=== PATIENT | female | born 1955 | race Caucasian/White ===

== ENCOUNTER 2020-12-16 09:00 | Outpatient (REF) | payer MEDICARE, SELFPAY ==
--- NOTE | 2020-12-18 13:38 | MHC.AU.AHA ---
Adult Audiological Evaluation Date of Visit: 12/16/20 Quality Control Projectionist Used: Not Applicable Reason for Appointment: Audiologic re-evaluation due to increased hearing difficulties. Previous Hearing Test Results: Normal hearing thresholds 250-750 Hz dropping to a severe high frequency sensorineural hearing loss with 84% speech understanding at 70 dB HL for the right ear and 76% for the left ear at 75 dB HL Medical History: Medication List: Celebrex, Citalopram, Estrogen Cream, Multi-vitamin, and Vitamin D Hearing Instrument History- Right Ear: Emergency Man: Phonak Model: [email or web address] M 90-13T Serial Number: [id number] Battery Size: 13 Repair Warranty: 08/20/2022 Dispensed By: [facility] Date of Fittin05/31/2019 Hearing Instrument History- Left Ear: Emergency Man: Phonak Model: [email or web address] M 90-13T Serial Number: [id number] Battery Size: 13 Repair Warranty: 08/20/2022 Dispensed By: [facility] Date of Fittin05/31/2019 Otoscopy: Right Ear: Unremarkable Left Ear: Unremarkable Tympanometry: Not performed at today's visit as all previous testing has indicated normal middle ear function bilaterally Hearing Evaluation: Transducer(s) Used: Insert Earphones Bone Conduction Method: Conventional Audiometry Stimuli Used: Pure Tones Right Ear: Description of Hearing: Normal hearing thresholds at 250 and 500 Hz dropping to a severe high frequency sensorineural hearing loss Left Ear: Description of Hearing: Normal hearing levels at 250-750 Hz dropping to a severe high frequency sensorineural hearing loss Speech Recognition Threshold (SRT): Method Used: Monitored Live Voice Stimuli Used: Spondee Words Right Ear: 30 dB HL Left Ear: 25 dB HL Word Discrimination: Method: Recorded Lists Word Lists Used: NU-6 Right Ear: 76% at 70 dB HL Left Ear: 72% at 70 dB HL Comparison: Compared to most recent evaluation: Hearing thresholds have decreased 10-20 dB at 0358-9552 Hz, right ear greater than left. A decrease in these frequencies can greatly affect the perception of loudness of speech. Recommendations: Audiological re-evaluation in one year. Will send a reminder card. Hearing aid maintenance performed today. Hearing aid(s) reprogrammed with updated test results. Diagnosis: Primary Diagnosis: H90.3 Bilateral Sensorineural Hearing Loss Services Performed: Comprehensive Audiological Evaluation (CPT 02839) Signature: Provider: Xiao English, DEVAUGHN-A
== END 2020-12-16 09:01 | disposition home or self-care (01) ==
LOC: HO.SH 09:00
PROVIDERS: Visit Provider Nurse Practitioner Family
DX: H91.90 Unspecified hearing loss, unspecified ear (principal)
CPT/HCPCS: 92557

== ENCOUNTER → 2021-02-08 09:17 | Day surgery (SDC) | payer MEDICARE, SELFPAY ==
[2021-02-02 11:41] VITALS: BMI 29.9
--- NOTE | 2021-02-04 07:49 | MHC.SHP ---
Pre-Procedural Eval Section A Date of Service: 02/04/21 The patient is an INPATIENT: No The History & Physical has been completed within 30 days and I have reviewed it.: Yes Section B Chief Complaint: Cataract Right Eye Allergies: Allergies Allergy/AdvReac Type Severity Reaction Status Date / Time No Known Allergies Allergy Verified 02/02/21 11:38 [No Known Allergies*] Plan Diagnosis/Plan: Unchanged I have reviewed the history and physical and performed a pertinent physical examination on my patient. No changes have occurred unless specified.
--- NOTE | 2021-02-05 10:18 | HO.ANESPROP2 ---
Documented by User: Janet Ramey 02/05/21 10:18 HPI - Anesthesia Eval Consult details Narrative: 65yo F for Right Cataract Extraction IOL Insertion PCP cleared No prev cataract on record [facility] Past Medical History Medical History Anxiety Arthritis COVID-19 vaccine series completed CASON (dyspnea on exertion) Surgical History Surgical History History of Hx laparoscopic cholecystectomy Hx of colonoscopy Social History Social History Patient Tobacco Use Status: Former Tobacco user Quit Date: Years Smoked: 2 Use of substances other than those prescribed or required for medical reasons: No Are you DNR?: No Advance Directives: No Advance Directives Information Provided: No Meds Allergies Allergy/AdvReac Type Severity Reaction Status Date / Time No Known Allergies Allergy Verified 02/02/21 11:38 [No Known Allergies*] Home Medications Medication Instructions Recorded Confirmed Last Taken Type calcium carbonate-vitamin D3 tab 02/02/21 02/02/21 Unknown History [Calcium + D] celecoxib [Celebrex] 200 mg PO DAILY 02/02/21 02/02/21 Unknown History citalopram [Celexa] 20 mg PO DAILY 02/02/21 02/02/21 Unknown History multivitamin 1 tab PO DAILY 02/02/21 02/02/21 Unknown History Exam Exam Date and Time: February 05, 2021 1018 Height,Weight and Vital Signs: Height 5 ft 5 in Weight 81.647 kg Assessment and Plan Assessment Anesthesia Assessment: Chart Reviewed Documented by User: Mukund Martinez 02/08/21 10:57 PMFSH Past Medical History Medical History Anxiety Arthritis COVID-19 vaccine series completed CASON (dyspnea on exertion) Surgical History Surgical History History of Hx laparoscopic cholecystectomy Hx of colonoscopy Social History Social History Patient Tobacco Use Status: Former Tobacco user Quit Date: Years Smoked: 2 Use of substances other than those prescribed or required for medical reasons: No Are you DNR?: No Advance Directives: No Advance Directives Information Provided: No Meds Allergies Allergy/AdvReac Type Severity Reaction Status Date / Time No Known Allergies Allergy Verified 02/02/21 11:38 [No Known Allergies*] Home Medications Medication Instructions Recorded Confirmed Last Taken Type calcium carbonate-vitamin D3 tab 02/02/21 02/02/21 Unknown History [Calcium + D] celecoxib [Celebrex] 200 mg PO DAILY 02/02/21 02/02/21 Unknown History citalopram [Celexa] 20 mg PO DAILY 02/02/21 02/02/21 Unknown History multivitamin 1 tab PO DAILY 02/02/21 02/02/21 Unknown History Exam Airway Mallampati Class: II TM Dist: >3cm Neck ROM: Full Loose/Missing/Broken Teeth: No (many crowns) Heart: rrr+[id number] Lungs: cta b/l Assessment and Plan Assessment Anesthesia Assessment: Anesthesia Plan Discussed, PAT Visit and Chart Reviewed Final Anesthetic Review NPO: Yes ASA Class: II Final Preanesthetic Review: No Changes in Pt Med Stat, Meds/Allgs Chart Reviewed, Consent Obtained/Reviewed and Anes Risks/Benef Reviewed Patient Risk: Low Procedure Risk: Low Assessment/Block/Sedation in SS: Assess/Block/Sedation-SS Anesthetic Plan Anesthetic Plan: MAC: and Agree w/ Assess. and Plan Disposition: Standard PACU
[2021-02-08 10:45] VITALS: BP 144/76; PULSE 60; RESP 18; TEMP 36.1; O2SAT 97
[2021-02-08] MEDS: Tetracaine HCl/PF 0.5% Oph Sol 4 ML DROPS 1 DROP EYE-RIGHT (10:55)
[2021-02-08] MEDS: Tropicamide 1 % Ophth Sol 3 ML BTL 1 DROP EYE-RIGHT ×3 (10:55→10:56)
[2021-02-08] MEDS: Lactated Ringers 500 ML 50 ML IV (10:55)
[2021-02-08] MEDS: Phenylephrine HCL 2.5% Oph SoL 2 ML BOTTLE 1 DROP EYE-RIGHT ×3 (10:56→10:57)
--- NOTE | 2021-02-08 12:40 | HO.PNOPHT ---
Ophthalmology Procedure Procedure Date of Service: 02/08/21 Ophthalmology Viscoelastic: Healon Duet Dual Pack Pro Ophthalmology Lenses: TECNIS ZXR00 (23) Procedure Notes: PREOPERATIVE DIAGNOSIS: Decreased visual acuity right eye secondary to cataract POSTOPERATIVE DIAGNOSIS: Same PROCEDURE: Right cataract extraction with intraocular lens insertion SURGEON: Brad Knowles M.D. ANESTHESIA: Topical/MAC ESTIMATED BLOOD LOSS: None COMPLICATIONS: None After obtaining informed consent, the patient was brought to the operating room suite and placed in the supine position. After adequate sedation per anesthesia, topical drops of Tetracaine were given to the right eye. The eye was then prepped and draped in the usual sterile fashion. The operating room microscope was then positioned over the operative eye and a lid speculum placed. A paracentesis was created. Viscoelastic was then instilled into the anterior chamber. A three plane incision was then created temporally, utilizing a 2.85 mm keratome. Capsulotomy forceps were then utilized to create a circular tear capsulotomy. Hydrodissection and hydrodelineation were carried out until adequate mobilization of the nucleus occurred. Phacoemulsification was then utilized to remove the dense central nucleus followed by removal of the cortical material utilizing the automated aspiration irrigation unit. Viscoelastic was instilled into the posterior capsular bag followed by placement of a posterior chamber intraocular lens without difficulty. The residual Viscoelastic was then removed utilizing the automated IA machine. The wound was checked and found to be watertight. The patient tolerated the procedure well and the lid speculum was removed. Intracameral injection of Vigamox 0.1 mL followed by a subtenon injection of Kenalog-40 0.2 mL were administered. The patient will be seen in the a.m.
[2021-02-08 13:05] VITALS: BP 128/77; PULSE 56; RESP 16; TEMP 36.1; O2SAT 96
== END | disposition home or self-care (01) ==
PROVIDERS: PCP Nurse Practitioner Family; Visit Provider Ophthalmology
PROC: (CPT 66984; principal; 2021-02-08 12:10)
DX: H25.11 Age-related nuclear cataract, right eye (principal); H52.4 Presbyopia; F41.9 Anxiety disorder, unspecified; Z79.899 Other long term (current) drug therapy; Z88.8 Allergy status to other drugs, medicaments and biological substances; Z87.891 Personal history of nicotine dependence
CPT/HCPCS: 66984; J2250; J3300; V2788

== ENCOUNTER 2021-02-22 06:00 | Day surgery (SDC) | payer MEDICARE, SELFPAY ==
[2021-02-02 11:43] VITALS: BMI 29.9
--- NOTE | 2021-02-17 09:26 | MHC.SHP ---
Pre-Procedural Eval Section A Date of Service: 02/17/21 The patient is an INPATIENT: No The History & Physical has been completed within 30 days and I have reviewed it.: Yes Section B Chief Complaint: Cataract left eye Allergies: Allergies Allergy/AdvReac Type Severity Reaction Status Date / Time No Known Allergies Allergy Verified 02/02/21 11:38 [No Known Allergies*] Plan Diagnosis/Plan: Unchanged I have reviewed the history and physical and performed a pertinent physical examination on my patient. No changes have occurred unless specified.
--- NOTE | 2021-02-19 08:21 | P.CONAN_ITS ---
Documented by User: Janet Ramey 02/19/21 08:21 HPI - Anesthesia Eval Consult details Narrative: 65yo F for Left Cataract Extraction IOL Insertion PCP cleared Right eye 02/08/21 with Midaz [facility] Past Medical History Medical History Anxiety Arthritis COVID-19 vaccine series completed CASON (dyspnea on exertion) Surgical History Surgical History History of Hx laparoscopic cholecystectomy Hx of colonoscopy Social History Social History Patient Tobacco Use Status: Former Tobacco user Quit Date: Years Smoked: 2 Use of substances other than those prescribed or required for medical reasons: No Have you been hit, kicked, punched, or otherwise hurt by someone within the past year? If so, by whom?: No Are you DNR?: No Advance Directives: No Advance Directives Information Provided: No Advance Directives on File: No Meds Allergies Allergy/AdvReac Type Severity Reaction Status Date / Time No Known Allergies Allergy Verified 02/02/21 11:38 [No Known Allergies*] Home Medications Medication Instructions Recorded Confirmed Last Taken Type calcium carbonate-vitamin D3 tab 02/02/21 02/02/21 Unknown History [Calcium + D] celecoxib [Celebrex] 200 mg PO DAILY 02/02/21 02/02/21 Unknown History citalopram [Celexa] 20 mg PO DAILY 02/02/21 02/02/21 Unknown History multivitamin 1 tab PO DAILY 02/02/21 02/02/21 Unknown History Exam Exam Date and Time: February 19, 202121 Height,Weight and Vital Signs: Height 5 ft 5 in Weight 81.647 kg Assessment and Plan Assessment Anesthesia Assessment: Chart Reviewed Documented by User: Mitzi Jin 02/22/21 08:27 [facility] Past Medical History Medical History Anxiety Arthritis COVID-19 vaccine series completed CASON (dyspnea on exertion) Surgical History Surgical History History of Hx laparoscopic cholecystectomy Hx of colonoscopy Social History Social History Patient Tobacco Use Status: Former Tobacco user Quit Date: Years Smoked: 2 Use of substances other than those prescribed or required for medical reasons: No Have you been hit, kicked, punched, or otherwise hurt by someone within the past year? If so, by whom?: No Are you DNR?: No Advance Directives: No Advance Directives Information Provided: No Advance Directives on File: No Meds Allergies Allergy/AdvReac Type Severity Reaction Status Date / Time No Known Allergies Allergy Verified 02/02/21 11:38 [No Known Allergies*] Home Medications Medication Instructions Recorded Confirmed Last Taken Type calcium carbonate-vitamin D3 tab 02/02/21 02/02/21 Unknown History [Calcium + D] celecoxib [Celebrex] 200 mg PO DAILY 02/02/21 02/02/21 Unknown History citalopram [Celexa] 20 mg PO DAILY 02/02/21 02/02/21 Unknown History multivitamin 1 tab PO DAILY 02/02/21 02/02/21 Unknown History Exam Airway Mallampati Class: II TM Dist: >3cm Neck ROM: Full Assessment and Plan Assessment Anesthesia Assessment: Anesthesia Plan Discussed and Chart Reviewed Final Anesthetic Review NPO: Yes ASA Class: II Final Preanesthetic Review: No Changes in Pt Med Stat, Meds/Allgs Chart Reviewed, Consent Obtained/Reviewed and Anes Risks/Benef Reviewed Patient Risk: Low Procedure Risk: Low Assessment/Block/Sedation in SS: Assess/Block/Sedation-SS Anesthetic Plan Anesthetic Plan: MAC: Disposition: Standard PACU
[2021-02-22 06:19] VITALS: BP 146/78; PULSE 52; RESP 18; TEMP 36.6; O2SAT 98
[2021-02-22] MEDS: Tropicamide 1 % Ophth Sol 3 ML BTL 1 DROP EYE-LEFT ×3 (06:22→06:24)
[2021-02-22] MEDS: Tetracaine HCl/PF 0.5% Oph Sol 4 ML DROPS 1 DROP EYE-LEFT (06:22)
[2021-02-22] MEDS: Phenylephrine HCL 2.5% Oph SoL 2 ML BOTTLE 1 DROP EYE-LEFT ×3 (06:22→06:24)
[2021-02-22] MEDS: Lactated Ringers 500 ML 50 ML IV (06:39)
--- NOTE | 2021-02-22 08:48 | HO.PNOPHT ---
Ophthalmology Procedure Procedure Date of Service: 02/22/21 Ophthalmology Viscoelastic: Healon Duet Dual Pack Pro Ophthalmology Lenses: TECNIS ZXR00 (22.5) Procedure Notes: PREOPERATIVE DIAGNOSIS: Decreased visual acuity left eye secondary to cataract POSTOPERATIVE DIAGNOSIS: Same PROCEDURE: Left cataract extraction with multifocal intraocular lens insertion SURGEON: Brad Knowles M.D. ANESTHESIA: Topical/MAC ESTIMATED BLOOD LOSS: None COMPLICATIONS: None After obtaining informed consent, the patient was brought to the operation room suite and placed in the supine position. After adequate sedation per anesthesia, topical drops of Tetracaine were given to the left eye. The eye was then prepped and draped in the usual sterile fashion. The operating room microscope was then positioned over the operative eye and a lid speculum placed. A paracentesis was created. Viscoelastic was then instilled into the anterior chamber. A three plane incision was then created temporally, utilizing a 2.85 mm keratome. Capsulotomy forceps were then utilized to create a circular tear capsulotomy. Hydrodissection and hydrodelineation were carried out until adequate mobilization of the nucleus occurred. Phacoemulsification was then utilized to remove the dense central nucleus followed by removal of the cortical material utilizing the automated aspiration irrigation unit. Viscoelastic was instilled into the posterior capsular bag followed by placement of a multifocal posterior chamber intraocular lens without difficulty. The residual Viscoelastic was then removed utilizing the automated IA machine. The wound was check and found to be watertight. The patient tolerated the procedure well and the lid speculum was removed. Intracameral injection of Vigamox 0.1 mL followed by a subtenon injection of Kenalog-40 0.2 mL were administered. The patient will be seen in the a.m.
[2021-02-22 09:13] VITALS: BP 124/75; PULSE 52; RESP 16; TEMP 36.1; O2SAT 97
== END 2021-02-22 10:00 | disposition home or self-care (01) ==
PROVIDERS: PCP Nurse Practitioner Family; Visit Provider Ophthalmology
PROC: (CPT 66984; principal; 2021-02-22 08:30)
DX: H25.12 Age-related nuclear cataract, left eye (principal); H52.4 Presbyopia; R06.09 Other forms of dyspnea; Z79.899 Other long term (current) drug therapy; Z87.891 Personal history of nicotine dependence
CPT/HCPCS: 66984; J2250; J3010; J3300; V2788

== ENCOUNTER 2021-06-22 10:45 | Outpatient (REF) | payer SELFPAY | END 2021-06-22 10:46 | disposition home or self-care (01) | LOC: HO.HAP 10:45 | PROVIDERS: Visit Provider Nurse Practitioner Family | DX: Z13.89 Encounter for screening for other disorder (principal) ==

== ENCOUNTER 2021-07-21 10:42 | Outpatient (REF) | payer MEDICARE, SELFPAY ==
[2021-07-21 11:57] LABS: COVID-19 Test Negative (Negative); IDNOW Serial# 16C4AD1C
== END 2021-07-21 10:43 | disposition home or self-care (01) ==
LOC: HO.LAB 10:42
PROVIDERS: Visit Provider Internal Medicine
DX: Z20.822 Contact with and (suspected) exposure to COVID-19 (principal)
CPT/HCPCS: 36415; 87635; C9803

== ENCOUNTER 2022-01-21 10:58 | Outpatient (REF) | payer MEDICARE, SELFPAY ==
[2022-01-21 11:35] LABS: COVID-19 Test Negative (Negative)
== END 2022-01-21 10:59 | disposition home or self-care (01) ==
LOC: HO.LAB 10:58
PROVIDERS: Visit Provider Internal Medicine
DX: Z20.822 Contact with and (suspected) exposure to COVID-19 (principal)
CPT/HCPCS: 87635; C9803

== ENCOUNTER 2022-03-21 12:34 | Outpatient (REF) | payer MEDICARE, SELFPAY ==
[2022-03-21 12:45] VITALS: BP 163/83; PULSE 66; RESP 16; TEMP 36.6; O2SAT 98; BMI 27.8
== END 2022-03-21 12:35 | disposition home or self-care (01) ==
LOC: HO.MS 12:34
PROVIDERS: PCP Nurse Practitioner Family; Visit Provider Ophthalmology
PROC: (CPT 66821; principal; 2022-03-21 14:10)
DX: H26.491 Other secondary cataract, right eye (principal); H52.4 Presbyopia; Z96.1 Presence of intraocular lens; Z79.899 Other long term (current) drug therapy
CPT/HCPCS: 66821

== ENCOUNTER 2022-04-11 13:08 | Outpatient (REF) | payer SELFPAY | END 2022-04-11 13:09 | disposition home or self-care (01) | LOC: HO.HAP 13:08 | PROVIDERS: Visit Provider Nurse Practitioner Family | DX: Z13.89 Encounter for screening for other disorder (principal) ==

== ENCOUNTER 2022-06-27 13:28 | Outpatient (REF) | payer MEDICARE, SELFPAY | END 2022-06-27 13:29 | disposition home or self-care (01) | LOC: HO.SH 13:28 | PROVIDERS: Visit Provider Nurse Practitioner Family | DX: Z46.1 Encounter for fitting and adjustment of hearing aid (principal); H90.3 Sensorineural hearing loss, bilateral | CPT/HCPCS: 92552; 92556; 92567 ==

== ENCOUNTER 2023-01-20 10:12 | Outpatient (REF) | payer SELFPAY | END 2023-01-20 10:13 | disposition home or self-care (01) | LOC: HO.HAP 10:12 | PROVIDERS: Visit Provider Nurse Practitioner Family | DX: Z46.1 Encounter for fitting and adjustment of hearing aid (principal); H90.3 Sensorineural hearing loss, bilateral | CPT/HCPCS: V5299 ==

== ENCOUNTER 2024-05-06 10:53 | Day surgery (SDC) | payer MEDICARE, SELFPAY ==
[2024-05-06 12:39] VITALS: BP 136/74; PULSE 60; RESP 14; TEMP 36.2; O2SAT 96
[2024-05-06] MEDS: Lactated Ringers 1,000 ML 100 ML IVCONT (12:48)
--- NOTE | 2024-05-06 13:00 | P.CONAN_ITS ---
Documented by User: Janet Ramey NP 05/03/24 09:35 HPI - Anesthesia Eval Consult details Narrative: 68yo F for Colonoscopy PMFSH Past Medical History Medical History Anxiety Arthritis COVID-19 vaccine series completed CASON (dyspnea on exertion) Surgical History Surgical History History of Hx laparoscopic cholecystectomy Hx of colonoscopy Social History Social History Are you a primary critical care clinical nurse specialist to a significant other at home: No Do you presently have visiting nurse or other home services: No Patient Tobacco Use Status: Former Tobacco user Years Smoked: 2 Use of substances other than those prescribed or required for medical reasons: No Have you been hit, kicked, punched, or otherwise hurt by someone within the past year? If so, by whom?: No Are you DNR?: No Advance Directives: No Advance Directives Information Provided: Yes Recently lost weight without trying: No Nutrition Risks: No Nutritional Risk Patient : No Meds Allergies Allergy/AdvReac Type Severity Reaction Status Date / Time No Known Allergies Allergy Verified 05/06/24 12:27 [No Known Allergies*] Home Medications ?Medication ?Instructions ?Recorded ?Confirmed ?Last Taken ?Type calcium carbonate 600 mg-vitamin tab 02/02/21 02/02/21 Unknown History D3 5 mcg (200 unit) tablet celecoxib 200 mg capsule (Celebrex) 200 mg PO DAILY 02/02/21 05/06/24 Unknown History citalopram 20 mg tablet (Celexa) 20 mg PO DAILY 02/02/21 05/06/24 Unknown History multivitamin 1 tab PO DAILY 02/02/21 05/06/24 Unknown History acetaminophen 325 mg capsule 1 mg PO PER PKG DIR 05/06/24 05/06/24 05/06/24 History omega 2-ddk-nel-fish oil 60 mg-90 600 cap PO 05/06/24 Unknown History mg-500 mg capsule (Fish Oil) Assessment and Plan Assessment Anesthesia Assessment: Chart Reviewed Documented by User: Geetha Mejias DO 05/06/24 13:22 PMFSH Past Medical History Medical History Anxiety Arthritis COVID-19 vaccine series completed CASON (dyspnea on exertion) Family History Family history of problems with anesthesia: No Surgical History Surgical History History of Hx laparoscopic cholecystectomy Hx of colonoscopy History of Problems with Anesthesia: No Social History Social History Are you a primary critical care clinical nurse specialist to a significant other at home: No Do you presently have visiting nurse or other home services: No Patient Tobacco Use Status: Former Tobacco user Years Smoked: 2 Use of substances other than those prescribed or required for medical reasons: No Have you been hit, kicked, punched, or otherwise hurt by someone within the past year? If so, by whom?: No Are you DNR?: No Advance Directives: No Advance Directives Information Provided: Yes Recently lost weight without trying: No Nutrition Risks: No Nutritional Risk Patient : No Meds Allergies Allergy/AdvReac Type Severity Reaction Status Date / Time No Known Allergies Allergy Verified 05/06/24 12:27 [No Known Allergies*] Home Medications ?Medication ?Instructions ?Recorded ?Confirmed ?Last Taken ?Type calcium carbonate 600 mg-vitamin tab 02/02/21 02/02/21 Unknown History D3 5 mcg (200 unit) tablet celecoxib 200 mg capsule (Celebrex) 200 mg PO DAILY 02/02/21 05/06/24 Unknown History citalopram 20 mg tablet (Celexa) 20 mg PO DAILY 02/02/21 05/06/24 Unknown History multivitamin 1 tab PO DAILY 02/02/21 05/06/24 Unknown History acetaminophen 325 mg capsule 1 mg PO PER PKG DIR 05/06/24 05/06/24 05/06/24 History omega 6-igo-vev-fish oil 60 mg-90 600 cap PO 05/06/24 Unknown History mg-500 mg capsule (Fish Oil) Exam Exam Date and Time: 05/06/24 1300 Height,Weight and Vital Signs: Height 5 ft 5 in Vital Signs Temperature 97.1 F 05/06/24 12:39 Pulse Rate 60 05/06/24 12:39 Respiratory Rate 14 05/06/24 12:39 Blood Pressure 136/74 05/06/24 12:39 Pulse Oximetry 96 05/06/24 12:39 Oxygen Delivery Method Room Air 05/06/24 12:39 Temperature 97.1 F 05/06/24 12:39 Pulse Rate 60 05/06/24 12:39 Respiratory Rate 14 05/06/24 12:39 Blood Pressure 136/74 05/06/24 12:39 Pulse Oximetry 96 05/06/24 12:39 Oxygen Delivery Method Room Air 05/06/24 12:39 Airway Mallampati Class: II TM Dist: >3cm Neck ROM: Full Loose/Missing/Broken Teeth: No (patient denies any loose or broken teeth) Heart: S1S2 Lungs: CTAB Assessment and Plan Assessment Anesthesia Assessment: Anesthesia Plan Discussed and Chart Reviewed Final Anesthetic Review Family History of Problems with Anesthesia: No History of Problems with Anesthesia: No NPO: Yes ASA Class: II Final Preanesthetic Review: No Changes in Pt Med Stat, Meds/Allgs Chart Reviewed, Consent Obtained/Reviewed and Anes Risks/Benef Reviewed Patient Risk: Low Procedure Risk: Low Anesthetic Plan Anesthetic Plan: MAC: and Agree w/ Assess. and Plan Disposition: Standard PACU
[2024-05-06 13:38] VITALS: BMI 28.6
[2024-05-06 14:43] VITALS: BP 107/67; PULSE 59; RESP 16; TEMP 36.1; O2SAT 97
--- NOTE | 2024-05-06 14:47 | P.BOP_ITS ---
Brief Operative Note Date of Service: 05/06/24 Pre-op diagnosis: Screening Post-op diagnosis: other (Colon polyps) Procedure: Colonoscopy to the cecum with hot snare polypectomy x 3 Surgeon: Fazal Kapadia MD Anesthesia: MAC Was an Industrial Services Worker used for this Procedure?: No Estimated blood loss (mL): 0 Pathology: other (A. Polyps at 20cm) Condition: stable Disposition: PACU
[2024-05-06 14:58] VITALS: BP 127/79; PULSE 53; RESP 16; TEMP 36.1; O2SAT 97
--- NOTE | 2024-05-07 01:48 | OP_ITS ---
DATE OF SERVICE: 05/06/2024 SURGEON: Fazal Kapadia MD INDICATIONS: The patient presents for evaluation of colorectal cancer screening. Full consent has been obtained from her for this, including risks of bleeding and perforation. PREOPERATIVE DIAGNOSIS: Colorectal cancer screening. POSTOPERATIVE DIAGNOSIS: PROCEDURE PERFORMED: Colonoscopy to cecum with hot snare polypectomy x3. ESTIMATED BLOOD LOSS: COMPLICATIONS: ANESTHESIA: Monitored anesthesia care. ASSISTANTS: SPECIMENS: POSTOPERATIVE DIAGNOSES: Colorectal cancer screening, small colon polyps, mild diverticulosis, internal hemorrhoids. DESCRIPTION OF PROCEDURE: The patient was placed in the left lateral decubitus position. The digital rectal exam revealed no abnormalities. The Olympus video pediatric colonoscope was then entered into the rectum and advanced easily to the cecum. Once in the cecum, I did identify normal-appearing cecal pouch with appendiceal orifice and a normal-appearing ileocecal valve. The entire cecum and ileocecal valve appeared normal. The scope was slowly withdrawn assessing all mucosal surfaces carefully. Preparation was excellent. At 20 cm, were 3 flat, but raised approximately 5 or 6 mm polyps, which were all removed by hot snare polypectomy and recovered by suction. All of the polypectomy sites appeared clean, without any sign of residual polyp nor bleeding. I did not visualize any other polyps, colitis, nor angiodysplasias. There was a mild amount of sigmoid diverticulosis. In the rectum, scope was retroflexed, visualizing internal hemorrhoids, but no other pathology. The rectal mucosa appeared normal. Scope was straightened and withdrawn from the patient. She tolerated the procedure well and was returned to the recovery area in stable condition. IMPRESSION: 1. Colon polyps. 2. Diverticulosis. 3. Internal hemorrhoids. PLAN: The results of the pathology will be checked. If these happen to be tubular adenoma, I would recommend a followup colonoscopy in 5 years. If they are all hyperplastic, then I do not think she will need any further screening colonoscopies in the future. She was advised not to use any aspirin or NSAIDs for 1 week. MD LYNNETTE Stern/DAMIONL / [id number]
== END 2024-05-06 15:20 | disposition home or self-care (01) ==
PROVIDERS: PCP Nurse Practitioner Family; Visit Provider Internal Medicine
PROC: 0DJD8ZZ Inspection of Lower Intestinal Tract, Via Natural or Artificial Opening Endoscopic (ICD-10-PCS; CPT 45378; principal; 2024-05-06 13:50)
DX: Z12.11 Encounter for screening for malignant neoplasm of colon (principal); K63.5 Polyp of colon; K57.30 Diverticulosis of large intestine without perforation or abscess without bleeding; K64.8 Other hemorrhoids; K58.9 Irritable bowel syndrome, unspecified; R19.7 Diarrhea, unspecified; M81.0 Age-related osteoporosis without current pathological fracture; Z79.899 Other long term (current) drug therapy; Z79.1 Long term (current) use of non-steroidal anti-inflammatories (NSAID); Z87.891 Personal history of nicotine dependence
CPT/HCPCS: 45385; 88305; J2003; J2704

== ENCOUNTER 2024-07-08 14:29 | Outpatient (REF) | payer SELFPAY ==
--- NOTE | 2024-07-08 15:58 | MHC.AU.HA3 ---
Hearing Instrument Follow-Up- Binaural Date of Visit: 07/08/24 Right Ear: Make, Model, Color, Serial Number: [id number] Appellate Conferee Repair Warranty: 08/20/2022 Appellate Conferee Loss and Damage Warranty: [facility] Service Plan: Battery Size: 13 Animal Behaviourist/Slim Tube: #1 Medium Earmold/Dome/CShell/SlimTip:sm power Type of Wax Guard: CeruShield Dispensed By: [facility] Date of Fittin05/31/2019 Left Ear: Make, Model, Color, Serial Number: [id number] Appellate Conferee Repair Warranty: 08/20/2022 Appellate Conferee Loss and Damage Warranty: [facility] Service Plan: Battery Size: 13 Animal Behaviourist/Slim Tube: #1 Medium Earmold/Dome/CShell/SlimTip: sm power Type of Wax Guard: CeruShield Dispensed By: [facility] Date of Fittin05/31/2019 Follow-Up Summary: Seen for hearing aid problem. Presents right hearing aid functional but bottom loader is hanging on by a thread. Cleaned and checked both aids. Replaced bottom loader right. Replaced domes and wax guards. Listening check positive. Recommendations: Recommendations: Hearing instrument follow-up or maintenance as needed. Diagnosis Code(s): Primary Diagnosis: H90.3 Bilateral Sensorineural Hearing Loss Signature: Provider: Dmitry Montgomery, [facility]
== END 2024-07-08 14:30 | disposition home or self-care (01) ==
LOC: HO.HAP 14:29
PROVIDERS: Visit Provider Nurse Practitioner Family
DX: Z46.1 Encounter for fitting and adjustment of hearing aid (principal); H90.3 Sensorineural hearing loss, bilateral
CPT/HCPCS: V5299

== ENCOUNTER 2025-02-07 13:07 | Outpatient (AMB) | payer MEDICARE, SELFPAY ==
--- OUTSIDE RECORDS SUMMARY | 2024-05-06 09:50 | XMS_ITS ---
Author Organization [facility] Address [address] [place] [id number] Care Team Providers Care Bar Welder Name Role Phone Sylviamarquita Olivia Primary Care Provider Fazal Giron [phone] REASON FOR VISIT screening Problems Problem Type SNOMED Code ICD Code Onset Dates Problem Status W/U Status Risk Notes Problem Diverticular disease of colon (895699674) Diverticulosis of large intestine without perforation or abscess without bleeding (K57.30) Active confirmed Encounters Encounter Location Date Provider Diagnosis [facility] [address] [place] [phone] 05/06/2024 Fazal Kapadia Colon cancer [place] Z12.11 ; Colon polyps K63.5 ; Diverticulosis of large intestine without perforation or abscess without bleeding K57.30 and Other hemorrhoids K64.8 Assessments Encounter Date Diagnosis (ICD Code) Assessment Notes Treatment Notes Treatment Clinical Notes Section Notes 05/06/2024 Colon cancer screening (ICD-10 - Z12.11) 05/06/2024 Colon polyps (ICD-10 - K63.5) 05/06/2024 Diverticulosis of large intestine without perforation or abscess without bleeding (ICD-10 - K57.30) 05/06/2024 Other hemorrhoids (ICD-10 - K64.8) Plan Of Treatment No Information Progress Notes * YULIA DARLINGDOB: 5 (69 yo F)Acc No.[id number]:05/06/2024 COLON WITH MAC Patient: Cameron YULIA AMOS Provider: Phillip Kapadia MD :1955 A ge:68 Y S ex:Female Date:05/06/2024 Address:[address] [place] [address] [place], [id number] Pcp:Olivia Luciano Subjective: * Chief Complaints: * 1 . Screening. * Medical History: Objective: * Vitals: Assessment: * Assessment: 1. C olon cancer screening - Z12.11 (Primary) 2 . C olon polyps - K63.5? 3. D iverticulosis of large intestine without perforation or abscess without bleeding - K57.30 4 . O ther hemorrhoids - K64.8 Plan: * Treatment: * Procedure Codes: 4 5385 LESION REMOVAL COLONOSCOPY, Modifiers: PT , 0529F INTRVL 3+YRS PTS CLNSCP DOCD, 0528F RCMND FLW-UP 10 YRS DOCD, Modifiers: 1P * * The named appointment provid er may or may not be the originator of this progress note, and it is not deemed complete until electronically signed by the appointment provider. Sign off status: Pending * Provider: Phillip Kapadia MD Date: 1 Generated for Misael rahman/Rocky/Patiitting on: 0 02/07/2025 01:10 PM EDT
--- NOTE | 2025-02-07 13:09 | MHC.OFFWIV ---
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 Patient states she broke her thumb in July in a skiing accident and the nail came off as a result. The patient's nail has grown back and is nontender but she noted redness, pain and subcutaneous pus adjacent to the thumbnail approximately 5 days ago. Patient used Neosporin topically without complete relief. Patient states she has pain at the tip of her left thumb. She denies having any fevers or chills. [facility] Medical History Anxiety Arthritis COVID-19 vaccine series completed CASON (dyspnea on exertion) Surgical History History of Hx laparoscopic cholecystectomy Hx of colonoscopy Social History Are you a primary home care aide to a significant other at home: No Do you presently have visiting nurse or other home services: No Patient Tobacco Use Status: Former Tobacco user Years Smoked: 2 Review of Systems Const All systems reviewed & are unremarkable except as noted in HPI and below Denies chills, Denies fatigue, Denies fever(s) and Denies malaise Skin/Breast Details: redness, pain distal left thumb Endo Denies fatigue Physical Exam Vital Signs: Last Vital Signs Temp 97.8 F 02/07/25 13:10 Pulse 80 02/07/25 13:10 BP 122/72 02/07/25 13:10 Pulse Ox 97 02/07/25 13:10 Oxygen Delivery Method Room Air 02/07/25 13:10 BMI result Body Mass Index 29.8 Patient is afebrile Const General: cooperative, healthy appearing, comfortable, no acute distress, well developed, alert, awake and Physically active Nutritional Appearance: well nourished Orientation/consciousness: patient oriented x3 Limitations: no limitations Skin Other: There is approximately 4 mm of erythema adjacent to the lateral cuticle of the left thumb extending to the distal end of the left thumb, no subcutaneous purulence noted, nails are painted blue Neuro General: patient oriented x3 Extrem Other: passive ROM intact left thumb, sensation to light touch intact throughout left thumb and left hand Psych Appearance: grossly normal Mental Status: mental status grossly normal Insight: Good insight present (Psych) Judgement: Good judgement present (Psych) Assessment & Plan Assessment & Plan (1) Cellulitis of thumb, left: Comment: There are no drainable cutaneous lesions noted on clinical examination. Patient will be discharged home with antibiotic therapy. Code(s): L03.012 - Cellulitis of left finger Plan: Doxycycline 100 mg b.i.d. x7 days; Tylenol as needed for discomfort. Medications: New doxycycline hyclate 100 mg PO BID 14 tabs 0RF Coding Level of Care Code Est Pt Level 3 (36178) Diagnoses Cellulitis of thumb, left L03.012 Time Spent (min) 20
[2025-02-07 13:10] VITALS: BP 122/72; PULSE 80; TEMP 36.6; O2SAT 97; BMI 29.8
--- OUTSIDE RECORDS SUMMARY | 2025-02-07 13:10 | XMS_ITS | Patient Health Record ---
Author Organization [facility] Address [address] [place] [address] Care Team Providers Care Operations Vice President Name Role Phone Olivia Luciano Primary Care Provider Olu Krishnamurthy Unavailable [phone] Allergies Allergen (clinical drug ingredient) Drug/Non Drug Allergy documented on EMR Reaction Allergy Type Onset Date Status acetaminophen Tylenol Unknown Drug Allergy Act vickie Reason For Referral No Information Medications Medication SIG (Take, Route, Fr equency, Duration) Notes Start Date End Date Status Celecoxib 200 MG 1 capsule with food Orally Once a day; Duration: 30 day(s) Active vitamin Active Social History Tobacco use other than smoking: Question Answer Notes Are you an other tobacco user? No Plan Of Treatment No Information Insurance Providers Payer Name Payer Address Payer Phone Subscriber Number Group Number Insured Name Patient Relationship to Insured Coverage Start Date Coverage End Date Medicare National Govt Sv[employer] [address] [place] [address] [id number] Nicky Roberson Self - patient is the insured [facility] Medicare-3 [id number] [address] [address] [place] [address] [id number] Nicky Roberson Self - patient is the insured Medical (General) History Medical History History ICD Code Arthritis Headaches Measles Mumps Chicken pox Surgical History Surgery Date(Month/Year) section 1983 Gall Bladder 05/2019 Xrays ap/lat/mo 11/29/19
== END 2025-02-07 13:32 | disposition home or self-care (01) ==
PROVIDERS: PCP Nurse Practitioner Family; Visit Provider Physician Assistant
DX: L03.012 Cellulitis of left finger (principal)

== ENCOUNTER → 2025-02-07 13:07 | Outpatient (BNVA) | payer MEDICARE, SELFPAY | PROVIDERS: PCP Nurse Practitioner Family; Visit Provider Physician Assistant | DX: L03.012 Cellulitis of left finger (principal) | CPT/HCPCS: 99212 ==

== ENCOUNTER 2025-03-10 14:32 | Outpatient (AMB) | payer MEDICARE, SELFPAY ==
[2025-03-10 14:33] VITALS: BP 118/72; PULSE 80; TEMP 36.6; O2SAT 97; BMI 29.0
--- NOTE | 2025-03-10 14:33 | AM.OFFWIN_ITS ---
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 - Approximately one month ago, the patie nt experienced redness across the thumb and was treated with antibiotics. - The condition has recurred, with signi ficant pain upon touch. - The patient has not had any nail resec tion or professional nail care since the initial occurrence. - She attempted to trim the nail herself to relieve pressure, suspecting a piece might be stuck. - She denies pus, drainage, discharge, t rauma, numbness, or tingling. Physical Exam General: Cooperative, healthy appearing, comfortable, no acute distress and well developed Respiratory: Normal respiratory effort and able to speak in complete sentences. Clear to auscultation bilaterally Cardiovascular: Regular rate and rhythm. Normal S1 and S2. Cap refill is less than 3 seconds. Skin: Erythema noted on the lateral nailbed of the left thumb. No fluctuance noted. No discharge or streakin noted. Neuro: Sensation intact. Extremities: Normal to inspection. FROM of the left thumb. TTP of the lateral nailfold. Patient was informed and verbally consented to the use of an ambient scribe for clinic note documentation during this visit. [facility] Medical History Anxiety Arthritis COVID-19 vaccine series completed CASON (dyspnea on exertion) Surgical History History of Hx laparoscopic cholecystectomy Hx of colonoscopy Social History Are you a primary senior resident care director to a significant other at home: No Do you presently have visiting nurse or other home services: No Patient Tobacco Use Status: Former Tobacco user Years Smoked: 2 Patient : No Review of Systems Const All systems reviewed & are unremarkable except as noted in HPI and below Physical Exam Vital Signs: Last Vital Signs Temp 97.8 F 03/10/25 14:33 Pulse 80 03/10/25 14:33 BP 118/72 03/10/25 14:33 Pulse Ox 97 03/10/25 14:33 Oxygen Delivery Method Room Air 03/10/25 14:33 BMI result Body Mass Index 29.0 Office Procedures Nail I&D/Excision Details: Trimmed the lateral nail on the left thumb. Minimal pain, no bleeding. Procedure was well tolerated. Bacitracin and bandaid applied. [id number]-[id number] of nail plate, partial or completed, single Procedure code (CPT) selection complete Assessment & Plan Assessment & Plan (1) Paronychia of left thumb: Code(s): L03.012 - Cellulitis of left finger Plan Most likely paronychia Plan - mupirocin ointment BID to the area - keflex 4 times a day for 7 days - may need to have her nail resected more - follow up with PCP Orders: Orders AMB Nail I&D/Excision Today L03.012 - Cellulitis of left finger Medications: New mupirocin 2% 1 appl topical TID 22 grams 0RF cephalexin 500 mg PO Q6H 28 caps 0RF Coding Level of Care Code Est Pt Level 4 (29466) Diagnoses Paronychia of left thumb L03.012 CPT Codes I&D Nail Bed/Hematoma - CPT: 24316-Jgedntwq of nail plate, partial or completed, single ([id number])
--- OUTSIDE RECORDS SUMMARY | 2025-03-10 14:58 | XMS_ITS | Patient Health Record ---
Author Organization [facility] Address [address] [place] [address] Care Team Providers Care Mail Distribution Scheme Examiner Name Role Phone Olivia Luciano Primary Care Provider Olu Krishnamurthy Unavailable [phone] Allergies Allergen (clinical drug ingredient) Drug/Non Drug [...] Medicare National Govt Svcs Inc [address] [place] [address] [id number] Nicky Roberson Self - patient is the insured [facility] Medicare-3 0995 [address] [address] [place] [address] [phone] [id number] Nicky Roberson Self - patient is the insured Medical (General) History Medical History History ICD Code Arthritis Headaches Measles Mumps Chicken pox Surgical History Surgery Date(Month/Year) section 1983 Gall Bladder 05/2019 Xrays ap/lat/mo 11/29/19
--- OUTSIDE RECORDS SUMMARY | 2025-03-10 14:58 | XMS_ITS | Encounter Summary ---
Author Organization [facility] Address [address] [place] [address] Phone Care Team Providers Care Dot Etcher Name Role Phone Soraya Mccormack MD Primary Care Provider [phone] Olivia Luciano [facility] Primary Care Provider [phone] Virgilio Singh MD Unavailable [phone] Cyrus Ballard MD Unavailable Olivia Luciano DOWELING MACHINE OPERATOR Unavailable [phone] Encounter Details Date Type Department Care Team (Late st Contact Info) Description 06/20/2019 Procedure Pass OR Admitting Dept - Virtual Department [address] [place] [address] Social History Tobacco Use Types Packs/Day Years Used Date Smoking Tobacco: Former Cigarettes Smokeless Tobacco: Never Comments:smoked for 2 yrs qu it @ age 19 Alcohol Use Standard Drinks/Week Comments Yes 3 (1 standard drink = 0.6 oz pur e alcohol) Comments No Sex and Gender Information Value Date Recorded Sex Assigned at Female 02/25/2020 2:01 PM EDT Legal Sex Female 9:53 AM EDT Gender Identity Female 02/25/2020 2:01 PM EDT Sexual Orientation Not on file documented as of this encounter Plan of Treatment Not on file documented as of this encounter Visit Diagnoses Not on filedocumented in this encounter Additional Health Concerns Infection Onset Date Last Indicated Resolved Time CoV-Presumed 09/13/2022 09/13/2022 10/04/2022 1:22 AM EST CoV-Risk Comment:Per Ambulatory Triage Form 09/14/2022 09/14/202209/14 11:17 AM EST CoV-Exposed Comment:Positive COVID-19 12/15/2023 12/15/2023 12/15/2023 1:2 8 PM EDT CoV-Risk Comment:Per Ambulatory Triage Form 12/15/2023 12/15/202312/14 1:28 PM EDT COVID-19 12/15/2023 12/15/2023 01/05/2024 1:23 AM EDT Assessment Noted Time PHQ-2 Depression Total Score: 0 02/12/20 11:37 AM EDT documented as of this encounter Care Teams Dot Etcher Relationship Specialty Start Date End Date Soraya Mccormack MD [email or web address] PCP - General Family Medicine 06/12/19 01/27/20 Olivia Luciano FNP [address] [place] [address] [address] [place] [address] [email or web address] PCP - General Family Medicine 01/28/20 Virgilio Singh MD [address] [place], [place] [address] [place] [phone] [email or web address] Insurance Assigned Provider 11/06/21 Cyrus Ballard MD [address] [place] [address] [address] [place] [address] [email or web address] Insurance Assigned Provider 11/05/22 Olivia Luciano FNP [address] [place] [address] [address] [place] [address] [email or web address] Insurance Assigned Provider 11/03/24 documented as of this encounter Additional Source Comments The information contained in this document represents components of the legal health record. It is not the complete legal health record.[facility]
--- OUTSIDE RECORDS SUMMARY | 2025-03-10 14:58 | XMS_ITS | Clinical Summary ---
Author Organization [facility] [place] [address] Care Team Providers Care Cadastral Surveyor Name Role Phone Unavailable Primary Care Provider Unavailabl e Social History Tobacco Use Types Packs/Day Years Used Date Smoking Tobacco: Never Assessed Comments Unknown Sex and Gender Information Value Date Recorded Sex Assigned at Not on file Legal Sex Female 12:28 PM EDT Gender Identity Not on file Sexual Orientation Not on file Plan of Treatment Health Maintenance Due Date Last Done Comments CT Colonography 1954 Colonoscopy 1954 Colorectal Cancer Screening 1954 FIT DNA 1954 FIT 1954 Sigmoidoscopy (10 year) with FIT yearly 1954 Sigmoidoscopy 1954 Hepatitis C Screening 1972 Tetanus/Diphtheria/Pertussis Vaccines (1 - Tdap) 09/12 Breast Cancer Share Decision Needed 1994 Breast Cancer screening 1994 Pneumoccocal Vaccine: 50+ (1 of 1 - PCV) 2004 Zoster vaccine (1 of 2) 2004 Advance Directive 2009 Bone Density Scan 2019 Covid-19 Vaccine (1 - season) 2024 Influenza (Flu) vaccine (1 o f 1 - Influenza standard series) 03/31/2025 Insurance MEDICARE [facility] SUPPLE[facility]
--- OUTSIDE RECORDS SUMMARY | 2025-03-10 14:59 | XMS_ITS | Patient Health Record ---
Author Organization [facility] Address [address] [place] [address] Care Team Providers Care Sports Writer Name Role Phone Sylviamarquita Olivia Primary Care Provider Fazal Giron [phone] Allergies No Known Allergies Results Component Value Reference Range Notes Pathology (Not yet reviewed by provider) Interpretation: Performing Lab:[facility], [address] [place] [phone] Notes/Report: Reason For Referral No Information Medications Medication SIG (Take, Route, Frequency, Duration) Notes Start Date End Date Status Multi Vitamin/Minerals Orally Active Citalopram Hydrobromide 10 MG Oral for 90 Active Celecoxib 200 MG Oral for 90 A ctive Flax Seed Oil 1000 MG as directed Orally Active Problems Problem Type SNOMED Code ICD Code Onset Dates Problem Status W/U Status Risk Notes Problem Colon cancer screening (542708632) Colon cancer screening (Z12.11) Active confirmed Problem Diarrhea (53190445) Diarrhea (R19.7) Active confirmed Problem Pre-procedure evaluation check (129777491) Encounter for other preprocedural examination (Z01.818) Active confirmed Problem Diverticular disease of colon (773423135) Diverticulosis of large intestine without perforation or abscess without bleeding (K57.30) Active confirmed Problem Irritable bowel (46315023) Irritable bowel (K58.9) Active confirmed Vital Signs Blood pressure diastolic 00 mm Hg 04/16/2024 Height 65.5 in 04/16/2024 Blood pressure systolic 00 mm Hg 04/16/2024 Weight 180 lbs 04/16/2024 BMI 29.49 kg/m2 04/16/2024 Encounters Encounter Location Date Provider Diagnosis [facility] [place] [facility] [address] [place], [place] [id number] 05/06/2024 Fazal Kapadia Colon cancer screeni ng Z12.11 ; Colon polyps K63.5 ; Diverticulosis of large intestine without perforation or abscess without bleeding K57.30 and Other hemorrhoids K64.8 [facility] [address] [place] [address] 04/16/2024 Fazal Kapadia Colon cancer screeni ng Z12.11 ; Irritable bowel K58.9 ; Encounter for other preprocedural examination Z01.818 and Diarrhea R19.7 Assessments Encounter Date Diagnosis (ICD Code) Assessment Notes Treatment Notes Treatment Clinical Notes Section Notes 05/06/2024 Colon cancer screening (ICD-10 - Z12.11) 05/06/2024 Colon polyps (ICD-10 - K63.5) 04/16/2024 Colon cancer screening (ICD-10 - Z12.11) Overall, Nicky appears quite well. Given her age, good clinical appearance, and her last colonoscopy being almost 10 years ago, I did recommend a followup colonoscopy for further screening purposes. We did review the rationale for this in regard to colon cancer prevention. Full consent is obtained for this, including risks of bleeding and perforation. The procedure will be done with monitored anesthesia care. In regard to her rare episodes of diarrhea, these seem quite consistent with a mild and sporadic case of irritable bowel syndrome. The other systemic symptoms, including the weakness and diaphoresis, seem quite consistent with a vasovagal episode in relation to the relatively acute GI symptoms. I don't think this reflects any worrisome pathology such as inflammatory bowel disease or any other type of colitis given the relatively infrequent nature of the symptoms and rapid spontaneous improvement.I did advise her to observe things in this regard but to certainly let me know if the GI aspect of the symptoms increase in frequency. I did advise her to speak with you if the vasovagal component of her symptoms become more frequent as well. Nicky was comfortable with this plan. Thank you again for allowing me to participate in the Nicky's care. I shall continue to keep you advised of her progress. 04/16/2024 Irritable bowel (ICD-10 - K58.9) Overall, Nicky appears quite well. Given her age, good clinical appearance, and her last colonoscopy being almost 10 years ago, I did recommend a followup colonoscopy for further screening purposes. We did review the rationale for this in regard to colon cancer prevention. Full consent is obtained for this, including risks of bleeding and perforation. The procedure will be done with monitored anesthesia care. In regard to her rare episodes of diarrhea, these seem quite consistent with a mild and sporadic case of irritable bowel syndrome. The other systemic symptoms, including the weakness and diaphoresis, seem quite consistent with a vasovagal episode in relation to the relatively acute GI symptoms. I don't think this reflects any worrisome pathology such as inflammatory bowel disease or any other type of colitis given the relatively infrequent nature of the symptoms and rapid spontaneous improvement.I did advise her to observe things in this regard but to certainly let me know if the GI aspect of the symptoms increase in frequency. I did advise her to speak with you if the vasovagal component of her symptoms become more frequent as well. Nicky was comfortable with this plan. Thank you again for allowing me to participate in the Nciky's care. I shall continue to keep you advised of her progress. 05/06/2024 Diverticulosis of large intestine without perforation or abscess without bleeding (ICD-10 - K57.30) 04/16/2024 Encounter for other preprocedural examination (ICD-10 - Z01.818) Overall, Nicky appears quite well. Given her age, good clinical appearance, and her last colonoscopy being almost 10 years ago, I did recommend a followup colonoscopy for further screening purposes. We did review the rationale for this in regard to colon cancer prevention. Full consent is obtained for this, including risks of bleeding and perforation. The procedure will be done with monitored anesthesia care. In regard to her rare episodes of diarrhea, these seem quite consistent with a mild and sporadic case of irritable bowel syndrome. The other systemic symptoms, including the weakness and diaphoresis, seem quite consistent with a vasovagal episode in relation to the relatively acute GI symptoms. I don't think this reflects any worrisome pathology such as inflammatory bowel disease or any other type of colitis given the relatively infrequent nature of the symptoms and rapid spontaneous improvement.I did advise her to observe things in this regard but to certainly let me know if the GI aspect of the symptoms increase in frequency. I did advise her to speak with you if the vasovagal component of her symptoms become more frequent as well. Nicky was comfortable with this plan. Thank you again for allowing me to participate in the Nicky's care. I shall continue to keep you advised of her progress. 05/06/2024 Other hemorrhoids (ICD-10 - K64.8) 04/16/2024 Diarrhea (ICD-10 - R19.7) Overall, Nicky appears quite well. Given her age, good clinical appearance, and her last colonoscopy being almost 10 years ago, I did recommend a followup colonoscopy for further screening purposes. We did review the rationale for this in regard to colon cancer prevention. Full consent is obtained for this, including risks of bleeding and perforation. The procedure will be done with monitored anesthesia care. In regard to her rare episodes of diarrhea, these seem quite consistent with a mild and sporadic case of irritable bowel syndrome. The other systemic symptoms, including the weakness and diaphoresis, seem quite consistent with a vasovagal episode in relation to the relatively acute GI symptoms. I don't think this reflects any worrisome pathology such as inflammatory bowel disease or any other type of colitis given the relatively infrequent nature of the symptoms and rapid spontaneous improvement.I did advise her to observe things in this regard but to certainly let me know if the GI aspect of the symptoms increase in frequency. I did advise her to speak with you if the vasovagal component of her symptoms become more frequent as well. Nicky was comfortable with this plan. Thank you again for allowing me to participate in the Nicky's care. I shall continue to keep you advised of her progress. Plan Of Treatment Pending Test Test Name Order Date Pathology 05/06/2024 Future Test Test Name Order Date COLONOSCOPY 03/20/2014 COLONOSCOPY 04/16/2024 Insurance Providers Payer Name Payer Address Payer Phone Subscriber Number Group Number Insured Name Patient Relationship to Insured Coverage Start Date Coverage End Date MEDICARE OF [place] [address] [place] [id number] [id number] NICKY DARLING Self - patient is the insured [facility] [employer] PLAN [address] [place] [address] [phone] [id number] NICKY DARLING Self - patient is the insured Medical (General) History Medical History History ICD Code Denies [place],DM,CVA,Lung disease,renal dise ase Neck pain--arthritis--uses buprofen Osteoporosis Screening colonoscopy 05/2014 negative e xcept for a hyperplastic polyp Depression Surgical History Surgery Date(Month/Year) C--section X 2 Cholecystectomy Cataract surgery bilateral
== END 2025-03-10 15:47 | disposition home or self-care (01) ==
PROVIDERS: PCP Nurse Practitioner Family; Visit Provider Physician Assistant Medical
DX: L03.012 Cellulitis of left finger (principal)
CPT/HCPCS: 11730

== ENCOUNTER → 2025-03-10 14:32 | Outpatient (BNVA) | payer MEDICARE, SELFPAY | PROVIDERS: PCP Nurse Practitioner Family; Visit Provider Physician Assistant Medical | DX: L03.012 Cellulitis of left finger (principal) | CPT/HCPCS: 99212 ==

== ENCOUNTER 2025-05-07 09:06 | Outpatient (REF) | payer SELFPAY | END 2025-05-07 09:07 | disposition home or self-care (01) | LOC: HO.HAP 09:06 | PROVIDERS: Visit Provider Nurse Practitioner Family | DX: Z46.1 Encounter for fitting and adjustment of hearing aid (principal); H90.3 Sensorineural hearing loss, bilateral | CPT/HCPCS: 92593 ==